=== PATIENT | female | born 1955 | race Caucasian/White ===

== ENCOUNTER 2024-08-22 17:22 | Inpatient (IN) | payer MEDICARE ==
[~2024-08-22] VITALS: Ht 162.6 cm; Wt 101.0 kg
[2024-08-22 18:26] LABS: HEMOGLOBIN 15.4 g/dl (12.0-16.0)
[2024-08-22 18:27] LABS: BASOPHILS # (AUTO) 0.1 X10'3 (0-0.2); EOSINOPHILS # (AUTO) 0.1 X10'3 (0-0.9); LYMPHOCYTES # (AUTO) 1.6 X10'3 (1.1-4.8); MEAN CORPUSCULAR HEMOGLOBIN 29.4 PG (27.0-31.0); MEAN PLATELET VOLUME 8.8 FL (7.4-10.4); MONOCYTES # (AUTO) 1.2 X10'3 (0-0.9)
[2024-08-22 18:37] LABS: BASOPHILS % (AUTO) 1.2 % (0-1); HEMATOCRIT 48.1 % (35.0-45.0); LYMPHOCYTES % (AUTO) 16.8 % (21-51); MEAN CORPUSCULAR HGB CONC 32.1 g/dL (33.0-36.5); MEAN CORPUSCULAR VOLUME 91.6 FL (78-98); MONOCYTES % (AUTO) 13.1 % (2-12); NEUTROPHILS # (AUTO) 6.4 X10'3 (1.8-7.7); NEUTROPHILS % (AUTO) 67.9 % (42-75); PLATELET COUNT 213 X10'3 (140-440); RED BLOOD COUNT 5.25 X10'6 (4.20-5.60); RED CELL DISTRIBUTION WIDTH 16.8 % (11.5-14.5); WHITE BLOOD COUNT 9.5 X10'3 (4.5-11.0)
[2024-08-22 18:42] LABS: ALANINE AMINOTRANSFERASE 44 U/L (12-78); ALBUMIN 3.2 G/DL (3.4-5.0); ALBUMIN/GLOBULIN RATIO 0.9 (1.1-1.5); ALKALINE PHOSPHATASE 83 IU/L (46-116); ANION GAP 2 (8-16); ASPARTATE AMINO TRANSFERASE 18 U/L (10-37); BILIRUBIN,TOTAL 0.2 MG/DL (0.1-1.0); BLOOD UREA NITROGEN 29 MG/DL (7-18); BUN/CREATININE RATIO 28.7 (10.0-20.0); CALCIUM 8.6 MG/DL (8.5-10.1); CHLORIDE 107 MMOL/L (99-107); CREATININE 1.01 MG/DL (0.40-0.90); GLUCOSE 103 MG/DL (70-104); POTASSIUM 4.6 MMOL/L (3.5-5.1); SODIUM 144 MMOL/L (135-145); TOTAL CARBON DIOXIDE 35.5 MMOL/L (24-32); TOTAL PROTEIN 6.7 G/DL (6.4-8.2); eCRCL 44 ML/MIN; eGFR 54 ML/MIN
[2024-08-22 18:50] LABS: ETHANOL < 10 MG/DL (<10); MAGNESIUM 2.5 MG/DL (1.5-2.4); PHOSPHORUS 4.4 MG/DL (2.3-4.5); PRO BRAIN NATRIURETIC PEPTIDE 5982 PG/ML (0-125)
[2024-08-22] MEDS: furosemide 10 MG/1 ML 10ml inj IV ONE (19:58)
[2024-08-22] MEDS ORDERED: magnesium Cl slow-release 64mg tablet PO PRN (20:15)
[2024-08-22] MEDS ORDERED: magnesium sulf-water 4G/100mL 100 ML IV PRN (20:15)
[2024-08-22] MEDS ORDERED: potassium Cl 20 mEq SR tablet PO PRN ×2 (20:15)
[2024-08-22] MEDS ORDERED: potassium Cl 40MEQ/1/2NS 520ml 520 ML IV PRN (20:15)
[2024-08-22] MEDS ORDERED: mag hydrox/Alum hydrox/simeth 30ml oral suspension PO PRN (20:15)
[2024-08-22] MEDS ORDERED: ondansetron/PF 4mg/2ml inj IV PRN (20:15)
[2024-08-22] MEDS ORDERED: magnesium sulf-water 2g/50mL 50 ML IV PRN (20:15)
[2024-08-22] MEDS ORDERED: acetaminophen 325mg tablet PO PRN ×2 (20:15)
[2024-08-22] MEDS ORDERED: ipratropium/albuterol 3ml nebule NEB PRN (20:30)
[2024-08-22] MEDS ORDERED: levoFLOXACIN 250mg tablet PO SCH (20:30)
[2024-08-22] MEDS ORDERED: dextrose 50%-water 50ml dispensing syringe IV PRN ×2 (20:40)
[2024-08-22] MEDS ORDERED: DEXTROSE 15 GM of carb/4 tabs (each vial/BOTTLE has 4 tablets) PO PRN ×2 (20:40)
[2024-08-22] MEDS ORDERED: glucagon, human recombinant 1mg kit SUBCUT PRN (20:40)
[2024-08-22 20:45] LABS: D-DIMER 0.83 MG/L FEU (0-0.50); HEMOGLOBIN A1C 5.7 % (4.5-6.2)
[2024-08-22] MEDS ORDERED: azithromycin 250mg tablet PO SCH (20:45)
[2024-08-22] MEDS ORDERED: albuterol 2.5 MG/3 ML nebule NEB PRN (20:55)
[2024-08-22] MEDS: INSULIN LISPRO 100 UNIT/ML INSULN.PEN MULTI-DOSE SQ SCH (21:00)
[2024-08-22] MEDS: ipratropium/albuterol 3ml nebule NEB SCH (21:25)
[2024-08-22 21:28] VITALS: PULSE 97; RESP 18; O2SAT 90
[2024-08-22 21:32] VITALS: PULSE 99; RESP 16
[2024-08-22] MEDS: azithromycin/NS 500mg/250ml 250 ML IV SCH (22:40)
[2024-08-22 22:58] LABS: ABG BASE EXCESS 0.9 mmol/L (-2.0-3.0); ABG HCO3 36.3 mmol/L (21.0-28.0); ABG OXYGEN SATURATION 87.5 % (94.0-98.0); ABG PCO2 (T) 128.7 mmHg (32.0-45.0); ABG PH (T) 7.066 (7.350-7.450); ABG PO2 (T) 61.9 mmHg (83.0-108.0); ALLEN'S TEST POSITIVE; FCOHb 5.8 % (0.5-1.5); FHHb 11.7 % (0.0-5.0); FLOW 3 L/min; FMetHb 0.3 % (0.0-1.5); FO2Hb 82.2 % (94.0-98.0); MODE NASAL CANNULA; PATIENT TEMPERATURE 36.6
[2024-08-22 23:07] VITALS: PULSE 93; RESP 21; O2SAT 92
[2024-08-22 23:18] LABS: BILIRUBIN,URINE SMALL (Neg); CLARITY,URINE CLEAR (Clear); COLOR,URINE YELLOW (Yellow); GLUCOSE, URINE NEGATIVE (Neg); KETONES,URINE NEGATIVE (Neg); LEUKOCYTE ESTERASE ,URINE NEGATIVE (Neg); NITRITES, URINE NEGATIVE (Neg); OCCULT BLOOD,URINE NEGATIVE (Neg); PH,URINE 5.5 (4.8-8.0); PROTEIN,URINE 30 mg/dl (Neg); UROBILINOGEN,URINE 0.2 E.U/dL (0.2-1.0)
[2024-08-22] MEDS: CefTRIAXone/D5W-Rocephin 1gm 50 ML IV SCH (23:18)
[2024-08-22] MEDS: methylPREDNISolone sod succ/PF 40mg inj. IV SCH (23:18)
[2024-08-22 23:24] LABS: UA COLLECTION TYPE FOLEY CATH
[2024-08-22 23:30] LABS: BACTERIA,URINE 2+ /HPF (Neg); MUCUS STRANDS MODERATE /LPF (Neg); RBC,URINE NONE SEEN /HPF (0-2); SQUAMOUS EPITHELIAL CELL,UR MODERATE /LPF (FEW); WBC,URINE 0-4 /HPF (0-4)
[2024-08-22 23:51] LABS: URINE AMPHETAMINE SCREEN NEGATIVE (Neg); URINE BARBITUATE SCREEN NEGATIVE (Neg); URINE BENZODIAZEPINES SCREEN NEGATIVE (Neg); URINE CANNABINOID SCREEN POSITIVE (Neg); URINE COCAINE SCREEN NEGATIVE (Neg); URINE METHADONE SCREEN NEGATIVE (Neg); URINE OPIATE SCREEN NEGATIVE (Neg); URINE PHENCYCLIDINE SCREEN NEGATIVE (Neg)
[2024-08-23] VITALS (27 sets, daily range): BP systolic 103–146; BP diastolic 51–64; PULSE 83–103; RESP 16–29; TEMP 97.6–98.6; O2SAT 88–98
[2024-08-23] MEDS: furosemide 10 MG/1 ML 10ml inj IV ONE (00:49)
[2024-08-23 01:28] LABS: ABG BASE EXCESS 4.6 mmol/L (-2.0-3.0); ABG HCO3 39.3 mmol/L (21.0-28.0); ABG OXYGEN SATURATION 83.2 % (94.0-98.0); ABG PCO2 (T) 122.5 mmHg (32.0-45.0); ABG PH (T) 7.121 (7.350-7.450); ABG PO2 (T) 50.9 mmHg (83.0-108.0); FCOHb 5.3 % (0.5-1.5); FHHb 15.9 % (0.0-5.0); FMetHb 0.3 % (0.0-1.5); FO2Hb 78.5 % (94.0-98.0); MODE MASK - BIPAP; PATIENT TEMPERATURE 36.6; RESPIRATORY RATE 20 b/min; TOTAL HEMOGLOBIN 15.8 G/dl (12.0-16.0)
[2024-08-23 07:41] LABS: PROTHROMBIN TIME 10.6 SECONDS (9.0-12.0)
[2024-08-23 07:44] LABS: ALANINE AMINOTRANSFERASE 40 U/L (12-78); ALBUMIN 2.9 G/DL (3.4-5.0); ALBUMIN/GLOBULIN RATIO 0.8 (1.1-1.5); ALKALINE PHOSPHATASE 77 IU/L (46-116); ANION GAP 1 (8-16); ASPARTATE AMINO TRANSFERASE 20 U/L (10-37); BILIRUBIN,TOTAL 0.2 MG/DL (0.1-1.0); BLOOD UREA NITROGEN 28 MG/DL (7-18); BUN/CREATININE RATIO 31.5 (10.0-20.0); CALCIUM 8.4 MG/DL (8.5-10.1); CHLORIDE 107 MMOL/L (99-107); CHOL/HDL RATIO 2.5 (0.00-4.99); CHOLESTEROL 170 MG/DL (0-200); CREATININE 0.89 MG/DL (0.40-0.90); GLUCOSE 95 MG/DL (70-104); HDL CHOLESTEROL 67 MG/DL (35-60); LDL CHOLESTEROL 80 MG/DL (50-100); MAGNESIUM 2.5 MG/DL (1.5-2.4); PHOSPHORUS 5.5 MG/DL (2.3-4.5); SODIUM 143 MMOL/L (135-145); TOTAL CARBON DIOXIDE 34.6 MMOL/L (24-32); TOTAL PROTEIN 6.4 G/DL (6.4-8.2); TRIGLYCERIDES 80 MG/DL (20-135); eCRCL 50 ML/MIN; eGFR 63 ML/MIN
[2024-08-23 07:48] LABS: POTASSIUM 5.6 MMOL/L (3.5-5.1)
[2024-08-23] MEDS: guaiFENesin ER 600mg tablet PO SCH (08:00)
[2024-08-23] MEDS: K and/or MAG REPLACEMENT MC SCH (08:00)
[2024-08-23] MEDS: furosemide 40mg/4ml inj IV SCH (08:12)
[2024-08-23] MEDS: heparin, porcine 5000 units/ml vial SQ SCH (08:15)
[2024-08-23] MEDS: INSULIN LISPRO 100 UNIT/ML INSULN.PEN MULTI-DOSE SQ SCH (09:00)
[2024-08-23 09:16] LABS: BASOPHILS # (AUTO) 0.1 X10'3 (0-0.2); BASOPHILS % (AUTO) 0.8 % (0-1); EOSINOPHILS % (AUTO) 0.1 % (0-6); HEMATOCRIT 45.7 % (35.0-45.0); HEMOGLOBIN 14.4 g/dl (12.0-16.0); LYMPHOCYTES # (AUTO) 1.2 X10'3 (1.1-4.8); LYMPHOCYTES % (AUTO) 12.8 % (21-51); MEAN CORPUSCULAR HGB CONC 31.4 g/dL (33.0-36.5); MEAN CORPUSCULAR VOLUME 92.3 FL (78-98); MEAN PLATELET VOLUME 8.4 FL (7.4-10.4); MONOCYTES # (AUTO) 0.8 X10'3 (0-0.9); MONOCYTES % (AUTO) 8.2 % (2-12); NEUTROPHILS # (AUTO) 7.4 X10'3 (1.8-7.7); NEUTROPHILS % (AUTO) 78.1 % (42-75); PLATELET COUNT 167 X10'3 (140-440); RED BLOOD COUNT 4.95 X10'6 (4.20-5.60); RED CELL DISTRIBUTION WIDTH 16.8 % (11.5-14.5); WHITE BLOOD COUNT 9.5 X10'3 (4.5-11.0)
[2024-08-23 10:29] LABS: ABG BASE EXCESS 7.7 mmol/L (-2.0-3.0); ABG HCO3 40.3 mmol/L (21.0-28.0); ABG PCO2 (T) 103.4 mmHg (32.0-45.0); ABG PH (T) 7.207 (7.350-7.450); ABG PO2 (T) 70.4 mmHg (83.0-108.0); ALLEN'S TEST POSITIVE; FCOHb 4.5 % (0.5-1.5); FHHb 5.7 % (0.0-5.0); FMetHb 0.3 % (0.0-1.5); FO2Hb 89.5 % (94.0-98.0); MODE MASK - BIPAP; PATIENT TEMPERATURE 36.7; RESPIRATORY RATE 20 b/min; TOTAL HEMOGLOBIN 15.1 G/dl (12.0-16.0)
[2024-08-23] MEDS: nystatin 15 GM powder TP SCH (20:13)
[2024-08-24] VITALS (21 sets, daily range): BP systolic 113–143; BP diastolic 59–77; PULSE 65–100; RESP 12–34; TEMP 96.7–98.2; O2SAT 92–98
[2024-08-24 06:08] LABS: BASOPHILS # (AUTO) 0.1 X10'3 (0-0.2); BASOPHILS % (AUTO) 0.9 % (0-1); EOSINOPHILS % (AUTO) 0.1 % (0-6); HEMATOCRIT 43.4 % (35.0-45.0); HEMOGLOBIN 13.5 g/dl (12.0-16.0); LYMPHOCYTES # (AUTO) 1.2 X10'3 (1.1-4.8); LYMPHOCYTES % (AUTO) 14.9 % (21-51); MEAN CORPUSCULAR HEMOGLOBIN 28.9 PG (27.0-31.0); MEAN CORPUSCULAR HGB CONC 31.2 g/dL (33.0-36.5); MEAN CORPUSCULAR VOLUME 92.6 FL (78-98); MEAN PLATELET VOLUME 8.7 FL (7.4-10.4); MONOCYTES # (AUTO) 0.6 X10'3 (0-0.9); MONOCYTES % (AUTO) 7.9 % (2-12); NEUTROPHILS % (AUTO) 76.2 % (42-75); PLATELET COUNT 165 X10'3 (140-440); RED BLOOD COUNT 4.68 X10'6 (4.20-5.60); RED CELL DISTRIBUTION WIDTH 16.5 % (11.5-14.5); WHITE BLOOD COUNT 7.9 X10'3 (4.5-11.0)
[2024-08-24 06:22] LABS: ALANINE AMINOTRANSFERASE 31 U/L (12-78); ALBUMIN 2.7 G/DL (3.4-5.0); ALBUMIN/GLOBULIN RATIO 0.8 (1.1-1.5); ALKALINE PHOSPHATASE 67 IU/L (46-116); ANION GAP 0 (8-16); ASPARTATE AMINO TRANSFERASE 13 U/L (10-37); BILIRUBIN,TOTAL 0.3 MG/DL (0.1-1.0); BLOOD UREA NITROGEN 23 MG/DL (7-18); BUN/CREATININE RATIO 35.9 (10.0-20.0); CALCIUM 8.2 MG/DL (8.5-10.1); CHLORIDE 103 MMOL/L (99-107); CREATININE 0.64 MG/DL (0.40-0.90); GLUCOSE 101 MG/DL (70-104); MAGNESIUM 2.3 MG/DL (1.5-2.4); SODIUM 142 MMOL/L (135-145); TOTAL PROTEIN 5.9 G/DL (6.4-8.2); eCRCL 70 ML/MIN; eGFR > 90 ML/MIN
[2024-08-24 06:23] LABS: POTASSIUM 4.9 MMOL/L (3.5-5.1)
[2024-08-24 08:18] LABS: ABG BASE EXCESS 10.5 mmol/L (-2.0-3.0); ABG HCO3 40.9 mmol/L (21.0-28.0); ABG OXYGEN SATURATION 94.8 % (94.0-98.0); ABG PCO2 (T) 82.5 mmHg (32.0-45.0); ABG PH (T) 7.311 (7.350-7.450); ABG PO2 (T) 68.5 mmHg (83.0-108.0); ALLEN'S TEST POSITIVE; FCOHb 2.9 % (0.5-1.5); FMetHb 0.3 % (0.0-1.5); FO2Hb 91.8 % (94.0-98.0); MODE MASK - BIPAP; PATIENT TEMPERATURE 36.7; RESPIRATORY RATE 12 b/min; TIDAL VOLUME 472 mL; TOTAL HEMOGLOBIN 15.1 G/dl (12.0-16.0)
[2024-08-24] MEDS: atorvastatin 20mg tablet PO SCH (09:24)
[2024-08-24] MEDS: HYDROcodone/acetaminophen 5mg/325mg tablet PO PRN (19:14)
[2024-08-24] MEDS: furosemide 40mg/4ml inj IV SCH (19:17)
[2024-08-24] MEDS: azithromycin 250mg tablet PO SCH (23:20)
[2024-08-25] VITALS (13 sets, daily range): BP systolic 131–143; BP diastolic 58–77; PULSE 97–104; RESP 18–22; TEMP 97.8–98.1; O2SAT 90–93
[2024-08-25 07:34] LABS: BASOPHILS # (AUTO) 0.1 X10'3 (0-0.2); BASOPHILS % (AUTO) 1.1 % (0-1); EOSINOPHILS % (AUTO) 0 % (0-6); HEMATOCRIT 45.2 % (35.0-45.0); HEMOGLOBIN 14.4 g/dl (12.0-16.0); LYMPHOCYTES # (AUTO) 1.2 X10'3 (1.1-4.8); LYMPHOCYTES % (AUTO) 14.3 % (21-51); MEAN CORPUSCULAR HGB CONC 31.8 g/dL (33.0-36.5); MEAN CORPUSCULAR VOLUME 91.1 FL (78-98); MEAN PLATELET VOLUME 8.8 FL (7.4-10.4); MONOCYTES # (AUTO) 0.9 X10'3 (0-0.9); MONOCYTES % (AUTO) 10.4 % (2-12); NEUTROPHILS # (AUTO) 6.4 X10'3 (1.8-7.7); NEUTROPHILS % (AUTO) 74.2 % (42-75); PLATELET COUNT 170 X10'3 (140-440); RED BLOOD COUNT 4.96 X10'6 (4.20-5.60); RED CELL DISTRIBUTION WIDTH 16.4 % (11.5-14.5); WHITE BLOOD COUNT 8.7 X10'3 (4.5-11.0)
[2024-08-25 07:49] LABS: ALANINE AMINOTRANSFERASE 29 U/L (12-78); ALBUMIN 2.9 G/DL (3.4-5.0); ALBUMIN/GLOBULIN RATIO 0.9 (1.1-1.5); ALKALINE PHOSPHATASE 69 IU/L (46-116); ANION GAP 0 (8-16); ASPARTATE AMINO TRANSFERASE 15 U/L (10-37); BILIRUBIN,TOTAL 0.3 MG/DL (0.1-1.0); BLOOD UREA NITROGEN 21 MG/DL (7-18); BUN/CREATININE RATIO 25.3 (10.0-20.0); CALCIUM 8.4 MG/DL (8.5-10.1); CHLORIDE 100 MMOL/L (99-107); CREATININE 0.83 MG/DL (0.40-0.90); GLUCOSE 103 MG/DL (70-104); MAGNESIUM 2.1 MG/DL (1.5-2.4); PHOSPHORUS 3.8 MG/DL (2.3-4.5); SODIUM 141 MMOL/L (135-145); TOTAL PROTEIN 6.2 G/DL (6.4-8.2); eCRCL 54 ML/MIN; eGFR 68 ML/MIN
[2024-08-25 08:08] LABS: POTASSIUM 4.6 MMOL/L (3.5-5.1)
[2024-08-25 08:32] LABS: TOTAL CARBON DIOXIDE 41.1 MMOL/L (24-32)
[2024-08-25] MEDS ORDERED: FLUT1BLS4 INH (13:45)
[2024-08-25] MEDS ORDERED: PARO20TA6 PO (13:45)
[2024-08-25] MEDS ORDERED: ROSU20TA98 PO (13:45)
[2024-08-25] MEDS ORDERED: LISI20TA28 PO (13:45)
[2024-08-25] MEDS ORDERED: METF-1203 PO (13:45)
[2024-08-25] MEDS ORDERED: NYST15PO13 TOP (13:45)
[2024-08-25] MEDS ORDERED: TIZA-189 PO (13:45)
[2024-08-25] MEDS ORDERED: CEFD300C3 PO (14:02)
[2024-08-25] MEDS ORDERED: FURO-150 PO (14:02)
== END 2024-08-25 17:58 | disposition home or self-care (01) | DRG 280 ==
LOC: ER 17:23 → ED HOLD 19:46 → PCU 3S 23:30
PROVIDERS: ADMIT Internal Medicine Critical Care Medicine; ATTEND Internal Medicine
PROC: 5A09357 Assistance with Respiratory Ventilation, Less than 24 Consecutive Hours, Continuous Positive Airway Pressure (ICD-10-PCS; principal; 2024-08-23)
PROC: 5A09357 Assistance with Respiratory Ventilation, Less than 24 Consecutive Hours, Continuous Positive Airway Pressure (ICD-10-PCS; 2024-08-24)
DX: I11.0 Hypertensive heart disease with heart failure (principal); I50.33 Acute on chronic diastolic (congestive) heart failure; I21.A1 Myocardial infarction type 2; J96.01 Acute respiratory failure with hypoxia; J18.9 Pneumonia, unspecified organism; J44.1 Chronic obstructive pulmonary disease with (acute) exacerbation; J44.0 Chronic obstructive pulmonary disease with (acute) lower respiratory infection; F17.210 Nicotine dependence, cigarettes, uncomplicated; Z66 Do not resuscitate; Z88.8 Allergy status to other drugs, medicaments and biological substances; Z88.0 Allergy status to penicillin
CPT/HCPCS: 36415; 36600; 70450; 71045; 80053; 80061; 80305; 80320; 81001; 82803; 82948; 83036; 83605; 83735; 83880; 84100; 84132; 84145; 84484; 85018; 85025; 85379; 85610; 87040; 87081; 93005; 93306; 94640; 94660; 94760; 96374; 97161; 97530; 99291; A4314; A4358; A4615; A4620; A6258; G0378; J0456; J0696; J1644; J1938; J1940; J2919; J7040